=== PATIENT | female | born 1935 | race Caucasian/White ===

== ENCOUNTER 2025-01-16 07:32 | Emergency (ER) | payer MEDICARE, OTHER, SELFPAY ==
[2025-01-16] VITALS (11 sets, daily range): BP systolic 145–185; BP diastolic 70–122; BMI 25.9
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
[2025-01-16] MEDS: MORPHINE SULFATE 4 MG IV (08:29)
[2025-01-16] MEDS: ADACEL 0.5 ML IM (11:06)
[2025-01-16 12:57] LABS: Urine Albumin Negative (Neg - Trace); Urine Bilirubin Negative (Negative); Urine Character Slightly Cloudy (Clear); Urine Color Yellow; Urine Glucose Negative (Negative); Urine Ketone Negative (Negative); Urine Leukocyte Negative (Negative); Urine Nitrite Negative (Negative); Urine Occult Blood Negative (Negative); Urine Urobilinogen Negative (Neg - 1+)
== END 2025-01-16 16:16 ==
LOC: EMR 07:32
PROVIDERS: Nurse Practitioner; EMERGENCY PHYSICIAN Emergency Medicine; FAMILY PHYSICIAN Family Medicine
DX: S42.201A Unspecified fracture of upper end of right humerus, initial encounter for closed fracture (principal); S52.501A Unspecified fracture of the lower end of right radius, initial encounter for closed fracture; S52.601A Unspecified fracture of lower end of right ulna, initial encounter for closed fracture; S01.81XA Laceration without foreign body of other part of head, initial encounter; W19.XXXA Unspecified fall, initial encounter; F03.90 Unspecified dementia, unspecified severity, without behavioral disturbance, psychotic disturbance, mood disturbance, and anxiety; Z23 Encounter for immunization
CPT/HCPCS: 12013; 90471; 96374; 99284; 29125; 70450; 70486; 72125; 73030; 73110; 81003; 90715; 93005

== ENCOUNTER 2025-01-17 14:27 | Observation (INO) | payer MEDICARE, OTHER, SELFPAY ==
[2025-01-17] VITALS (7 sets, daily range): BP systolic 110–166; BP diastolic 59–95; PULSE 69; O2SAT 100; BMI 23.1; BMI 23.0
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
--- NOTE | 2025-01-17 13:27 | CM ---
Addendum entered by Madelin Maddox 01/17/25 13:41:
lives with spouse at the [facility]
Original Note:
Case kobier reviewed patient's chart and met with patient and patient was admitted from the [facility], patient was in the ED yesterday was sent home and is now back again, patient with ambulatory dysfunction, right humeral and radius/ulna
fractures, patient is unable to sit up due to fractures, patient is also assist x 2, rehabilitation caseworker spoke with both of patient's daughters and plan is for skilled placement they have selected [facility] as first choice and [facility] as 2nd choice.
PCP: Dr Cespedes
Pharmacy: [facility] on [address]
Plan; Skilled placement referrals sent to [facility] and [facility]
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
[2025-01-17 15:15] LABS: Hematocrit 32.0 % (37.0-47.0); Hemoglobin 10.8 g/dL (12.0-16.0); Mean Corp Hgb Conc. 33.8 g/dL (33.0-37.0); Mean Corpuscular Volume 93.8 fL (81.0-99.0); Nucleated Red Blood Cells % 0 %; Platelet Count 189 10^3/uL (130-400); Red Cell Dist. Width 12.9 % (11.5-14.5)
[2025-01-17 15:29] LABS: ALT (SGPT) 18 U/L (0-35); AST (SGOT) 26 U/L (14-36); Albumin 3.7 g/dl (3.5-5.0); Alkaline Phosphatase 107 U/L (38-126); Blood Urea Nitrogen 18 mg/dl (7-17); Calcium 8.6 mg/dl (8.4-10.2); Carbon Dioxide 23 mmol/L (22-30); Chloride 109 mmol/L (98-107); Estimated Creatinine Clearance 57 ml/min; Glucose 93 mg/dl (70-99); Potassium 3.7 mmol/L (3.5-5.1); Sodium 138 mmol/L (135-145); Total Protein 6.8 g/dl (6.3-8.2); eGFR > 60.00
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
[2025-01-17] MEDS: SEROQUEL 25 MG PO (20:26)
[2025-01-17] MEDS: HEPARIN 5000 UNITS SC (20:26)
[2025-01-18] MEDS: SYNTHROID 75 MCG PO (05:20)
[2025-01-18 05:21] LABS: Hematocrit 31.5 % (37.0-47.0); Hemoglobin 10.6 g/dL (12.0-16.0); Mean Corp Hgb Conc. 33.7 g/dL (33.0-37.0); Mean Corpuscular Volume 93.8 fL (81.0-99.0); Nucleated Red Blood Cells % 0 %; Platelet Count 194 10^3/uL (130-400); Red Cell Dist. Width 13.0 % (11.5-14.5)
[2025-01-18 05:51] LABS: ALT (SGPT) 16 U/L (0-35); AST (SGOT) 24 U/L (14-36); Albumin 3.7 g/dl (3.5-5.0); Alkaline Phosphatase 107 U/L (38-126); Blood Urea Nitrogen 16 mg/dl (7-17); Calcium 8.3 mg/dl (8.4-10.2); Carbon Dioxide 25 mmol/L (22-30); Chloride 108 mmol/L (98-107); Estimated Creatinine Clearance 60 ml/min; Glucose 88 mg/dl (70-99); Potassium 3.7 mmol/L (3.5-5.1); Sodium 140 mmol/L (135-145); Total Protein 6.7 g/dl (6.3-8.2); eGFR > 60.00
[2025-01-18 07:16] VITALS: BP 143/73
[2025-01-18] MEDS: FEOSOL 325 MG PO (09:18)
[2025-01-18] MEDS: HEPARIN 5000 UNITS SC ×2 (09:19→19:39)
[2025-01-18] MEDS: SEROQUEL 25 MG PO ×2 (09:19→19:39)
--- NOTE | 2025-01-18 09:51 | W.PN.HOSP.TC ---
Addendum entered and electronically signed by Patricia Gu MD 01/18/25 16:06:
Addendum
Updated Patient daughter, Codi [phone]. Answered all questions.
End
Original Note:
Today's Communication/Plan
-
medical case worker for dc planning
Consult ortho for recommendations
Assessment / Plan
Assessment / Plan
Physical Exam
General: No Apparent Distress
HEENT: NormoCephalic, Moist mucous membranes and Atraumatic, mild bruising noted around right eye
Respiratory: Clear
Cardiac: S1/S2 and Regular Rhythm; No Murmur or Rub
GI: Soft, Non Tender, Non Distended and Normal Bowel Sounds; No Organomegaly
Rectal: no bleeding
Musculoskeletal: No Clubbing, No Cyanosis and No Edema
Skin: No Rash
Neuro: awake, forgetful, followed simple commands
Psych: calm, apparent dementia
PLAN:
# Right humeral/distal radial/ulnar fracture
-Sling and splint placed
- PT recommending rehab
- Patient denies pain but she is poor historian
- Case management unable to place today
- Tylenol for pain
- will consult ortho for recommendations
# Right orbital ecchymosis with laceration
-Small soft tissue laceration/hematoma within the right periorbital soft tissue
- CT head and facial bones negative for fracture
Dementia
Hypothyroidism
- Continue levothyroxine
DNR/DNI
DVT prophylaxis�heparin
Regular diet
Total time spent to see the patient, examine the patient, review data and lab result, discuss treatment plan with patient, nursing staff around 55 minutes
Anticipated Discharge: 24 - 48 hours
Subjective/Interval History
-
Date of Service: January 18, 2025
Objective Data
-
Labs:
Laboratory Results
01/18/25
04:14
WBC 6.7
Hgb 10.6 L
Hct 31.5 L
Plt Count 194
Sodium 140
Potassium 3.7
Chloride 108 H
Carbon Dioxide 25
BUN 16
Creatinine 0.6
Glucose 88
Calcium 8.3 L
Total Bilirubin 0.9
AST 24
ALT 16
Alkaline Phosphatase 107
Vital Signs:
Vital Signs
Temp Pulse Resp BP Pulse Ox
98.3 F 80 16 143/73 96
01/18/25 07:16 01/18/25 07:16 01/18/25 07:16 01/18/25 07:16 01/18/25 09:16
I&O
01/17/25 01/18/25 01/19/25
06:59 06:59 06:59
Intake Total 240 / 240
Balance 240 / 240
--- NOTE | 2025-01-18 12:40 | CON.ORTHO ---
Consultation
-
Date/Time Consultation Requested: 0958 01/18/2025
Date/Time Consultation Performed: 1240 01/18/2025
Requesting Provider: Blanca Gu
Performing Provider: Grzegorz Hodges
Reason for Consultation: R arm injury
Consultation - Orthopedics
History
Orthopedic Surgery Note
CC: R Arm Injury
HPI: 89-year-old Female with a History of Dementia Who Lives in Assisted Living Presents to the Emergency Department 2 Days Ago after a Fall. She Was Noted at That Time to Have a Proximal Humerus Fracture As Well As Distal Radius Fracture. She Was
Placed in a Sling and a Wrist Splint and Was Discharged Back to Her Assisted Living Facility. She Returned to the ER Due To Fall Risk and Being Unable to Manage with Her Right Upper Extremity Injury. The Patient Denies Significant Pain. She
Denies Distal Paresthesias.
PMH/PSH: Dementia, Hypothyroid
Medications: Reviewed
Family History: Family History Was Reviewed. Noncontributory
Social History: Nonsmoker, No Illicit Drugs
Exam
General Appearance: No Acute Distress, Sleepily Sitting Upright in a Chair
Head: Laceration above Right Eye with Ecchymosis, Sp Suture Repair
Nose: No Lesions or Discharge.
Skin: Ecchymosis and Edema about R Hand
Lungs: No Audible Wheezing, No Cough or Sputum Production
Musculoskeletal:
RUE:
Skin Intact without Open Wounds
R Sling and R Wrist Splint in Place
Fires R/u/M/Ain/Pin
Sensation Intact to Light Touch R/u/M
Fingers Wwp, 1+ Radial Pulse
Xrays:
Right Shoulder and Wrist Xrays Were Reviewed by Me. These Were Performed 01/16/2025 at [facility] Emergency Department. They Show an Impacted Fracture of the Right Proximal Humerus without Signs of Dislocation. Right Wrist X-Rays Were
Reviewed by Me Which Show Signs ofWhat Appears to Be an Extra-Articular Distal Radius Fracture As Well As a Fracture of the Ulnar Styloid.There Is Some Mild Shortening.
AP
89-year-old Female with a History of Dementia with a Right Impacted Extra-Articular Proximal Humerus Fracture As Well As a Right Extra-Articular Distal Radius Fracture. The Patient Is Neurologically Intact Distally. No Signs of Open Wounds Other
Than Her Right Periorbital Laceration. I RecommendedContinued Immobilization in the Right Wrist Splint and Right Shoulder Sling. She May Follow up with Dr. Brown or Dr. Bruce upon Discharge within 1-2 Weeks to Discuss Operative Vs Nonoperative
Management. Pain Control PRN. Edema Control with Ice and Elevation.
Grzegorz Hodges MD
> 75 Minutes Was Spent Reviewing the Clinical Information, Evaluating the Patient, and Formulating Clinical Plan.
Allergies / Home Medications
Allergy/AdvReac Type Severity Reaction Status Date / Time
No Known Drug Allergies Allergy NONE Verified 02/15/23 10:45
NKA - No Known Allergies Allergy Unknown Uncoded 02/15/23 10:45
�Medication �Instructions �Recorded
levothyroxine 75 mcg tablet 75 mcg PO DAILY@0600 Thyroid 02/15/23
ferrous sulfate 324 mg (65 mg 324 mg PO DAILY Supplement 01/17/25
iron) tablet,delayed release
lorazepam 0.5 mg tablet 0.5 mg PO BIDPRN PRN ANXIETY 01/17/25
quetiapine 25 mg tablet (Seroquel) 25 mg PO BID Mental Health/Anxiety 01/17/25
Vital Signs / Lab Results
Temp Pulse Resp BP Pulse Ox
98.3 F 80 16 143/73 96
01/18/25 07:16 01/18/25 07:16 01/18/25 07:16 01/18/25 07:16 01/18/25 09:16
01/18/25 04:14
01/18/25 04:14
[2025-01-18 14:55] VITALS: BP 125/75; O2SAT 96
[2025-01-18 15:03] VITALS: BP 125/75; O2SAT 96
[2025-01-18 15:27] VITALS: BP 121/66
--- NOTE | 2025-01-18 15:37 | PTCARENOTE ---
Pt awake and alert; oriented to self/place/birthdate; knows years, confused to month/day at times. Pt unsure as to why she is in the hospital. Forgetful at times. Pt BOURNE; has RUE forearm splint/RO wrap/sling. OOB to chair with assist x2; pt
very hesitant to assist with ambulation/moves legs minimally.VSS. Pt has +1 edema Rt hand; skin ecchymotic; sensation/movement (+) to right fingers; no c/o discomfort.. On room air- pulse ox 97%, no SOB noted. Abd obese, soft, katrin PO. Incont
large amts urine.Resting in bed at present. Will continue to monitor.
[2025-01-18] MEDS: ATIVAN PO (23:34)
[2025-01-18 23:35] VITALS: BP 130/73
[2025-01-19] MEDS: ZYPREXA 10 MG IM (00:28)
[2025-01-19] MEDS: SYNTHROID 75 MCG PO (05:30)
[2025-01-19 07:47] VITALS: BP 177/87
[2025-01-19 08:14] LABS: Hematocrit 34.2 % (37.0-47.0); Hemoglobin 11.2 g/dL (12.0-16.0); Mean Corp Hgb Conc. 32.7 g/dL (33.0-37.0); Mean Corpuscular Volume 95.3 fL (81.0-99.0); Platelet Count 213 10^3/uL (130-400); Red Cell Dist. Width 12.9 % (11.5-14.5)
[2025-01-19 08:44] LABS: Blood Urea Nitrogen 11 mg/dl (7-17); Calcium 8.8 mg/dl (8.4-10.2); Carbon Dioxide 27 mmol/L (22-30); Chloride 109 mmol/L (98-107); Estimated Creatinine Clearance 60 ml/min; Glucose 97 mg/dl (70-99); Potassium 3.6 mmol/L (3.5-5.1); Sodium 142 mmol/L (135-145); eGFR > 60.00
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
[2025-01-19] MEDS: HEPARIN 5000 UNITS SC ×2 (10:39→20:21)
[2025-01-19] MEDS: FEOSOL 325 MG PO (10:39)
[2025-01-19] MEDS: SEROQUEL 25 MG PO ×2 (10:39→20:18)
[2025-01-19 11:00] VITALS: BP 139/73
--- NOTE | 2025-01-19 12:11 | CM ---
Addendum entered by Lorie Navarrete 01/19/25 14:19:
Financial Applications for [facility] sent via email to pt's daughter, Codi Chan: [email or web address]
Addendum entered by Lorie Navarrete 01/19/25 13:19:
Pt recently changed her PCP, and is not eligible for the [employer] Waiver. CM called Dr. Cespedes's office to make them aware and will cancel the telehealth appointment that was scheduled earlier today.
CM called pt's daughters to discuss options: Private pay SNF vs. return to the [facility] with PT/OT and possibly additional private pay assistance.
Addendum entered by Lorie Navarrete 01/19/25 12:13:
[facility] does not participate in the [employer] Waiver program. Will need to follow up with [facility].
Original Note:
CM confirmed that Fina is eligible for the [employer] Waiver with the [facility]. Call placed to PCP office and spoke with Hannah to coordinate telehealth appointment. First available appointment is today at 5:45 PM with . Hannah will
coordinate the telehealth appointment with pt's daughter, Codi, who can be reached at [phone].
--- NOTE | 2025-01-19 13:41 | W.PN.HOSP.TC ---
Today's Communication/Plan
-
Assessment / Plan
Assessment / Plan
Physical Exam
General: No Apparent Distress
HEENT: NormoCephalic, Moist mucous membranes, mild bruising noted around right eye
Respiratory: Clear
Cardiac: S1/S2 and Regular Rhythm; No Murmur or Rub
GI: Soft, Non Tender, Non Distended and Normal Bowel Sounds; No Organomegaly
Rectal: no bleeding
Musculoskeletal: No Clubbing, No Cyanosis and No Edema, right upper extremity in sling
Skin: No Rash
Neuro: awake, forgetful, followed simple commands
Psych: calm, apparent dementia
PLAN:
# Right humeral/distal radial/ulnar fracture
- Sling for right shoulder fracture and splint for right wrist fracture
- Ortho following, no surgical intervention planned, remain nonweightbearing right upper extremity, outpatient follow-up 1 to 2 weeks
- PT/OT recommending SNF, placement pending and likely for tomorrow 01/20
- Tylenol for pain
# Right orbital ecchymosis with laceration
- Small soft tissue laceration/hematoma within the right periorbital soft tissue
- CT head and facial bones negative for fracture
- Continue fall precautions, local wound care as needed
Dementia
- Requires assistance with ADLs
- Continue home Seroquel
- Medically stable for SNF placement
Hypothyroidism
- Continue levothyroxine
DNR/DNI
DVT prophylaxis�heparin
Regular diet
Total time spent to see the patient, examine the patient, review data and lab result, discuss treatment plan with patient, nursing staff around 40 minutes
Anticipated Discharge: Within 24 hours
Subjective/Interval History
-
Date of Service: January 19, 2025
Patient was seen and examined at bedside this morning. Remains confused but clinically stable. Awaiting SNF placement.
Objective Data
-
Labs:
Laboratory Results
01/19/25
07:54
WBC 6.6
Hgb 11.2 L
Hct 34.2 L
Plt Count 213
Sodium 142
Potassium 3.6
Chloride 109 H
Carbon Dioxide 27
BUN 11
Creatinine 0.6
Glucose 97
Calcium 8.8
Vital Signs:
Vital Signs
Temp Pulse Resp BP Pulse Ox
97.6 F 84 18 139/73 95
01/19/25 07:47 01/19/25 11:00 01/19/25 07:47 01/19/25 11:00 01/19/25 07:47
I&O
01/18/25 01/19/25 01/20/25
06:59 06:59 06:59
Intake Total 240 / 240 810 / 810 240 / 240
Balance 240 / 240 810 / 810 240 / 240
Review of Systems
-
Unable to obtain full review of systems at this time due to: Dementia
Physical Exam
-
General: No Apparent Distress
[2025-01-19 14:39] VITALS: BP 153/83; PULSE 86; O2SAT 97
[2025-01-19 15:21] VITALS: BP 167/88
[2025-01-19] MEDS: ATIVAN 0.5 MG PO (20:18)
[2025-01-19 23:15] VITALS: BP 133/74
[2025-01-20] MEDS: SYNTHROID 75 MCG PO (06:11)
[2025-01-20 07:00] VITALS: BP 141/74
[2025-01-20] MEDS: FEOSOL 325 MG PO (08:19)
[2025-01-20] MEDS: HEPARIN 5000 UNITS SC ×2 (08:19→20:31)
[2025-01-20] MEDS: SEROQUEL 25 MG PO ×2 (08:19→20:31)
[2025-01-20 10:21] VITALS: BP 119/66; PULSE 82; O2SAT 95
[2025-01-20 10:22] VITALS: BP 119/66; PULSE 82; O2SAT 96
--- NOTE | 2025-01-20 11:35 | W.DCSUMMARY ---
Discharge Summary
Discharge Data
Date of Admission: 01/17/25
Date of Discharge: 01/20/25
Total time spent discharging patient (in min): 40
-
Pending Results: No
Hospital Course
Ms. Chan is an 89-year-old female with a medical history of dementia and hypothyroidism who presented after an unwitnessed fall. She was found to have fractured her right humerus, right radius, and right ulna. She was evaluated by orthopedic
surgery and surgical intervention was not warranted. Her right upper extremity was stabilized with a splint and sling. She is to remain nonweightbearing to her right upper extremity until she is able to follow-up in the outpatient orthopedic
office in 1 to 2 weeks. She also suffered a small laceration near her right eyebrow during her fall and required placement of 5 simple interrupted sutures. She has some surrounding periorbital ecchymosis which is improving. She will need ongoing
rehab at a correction facility which has been arranged. At time of hospital discharge she was medically stable. She will need follow-up with orthopedics and with her primary care physician.
General: No Apparent Distress
HEENT: NormoCephalic, Moist mucous membranes, mild bruising noted around right eye
Respiratory: Clear
Cardiac: S1/S2 and Regular Rhythm; No Murmur or Rub
GI: Soft, Non Tender, Non Distended and Normal Bowel Sounds; No Organomegaly
Rectal: no bleeding
Musculoskeletal: No Clubbing, No Cyanosis and No Edema, right upper extremity in sling
Skin: No Rash
Neuro: awake, forgetful, followed simple commands
Psych: calm, apparent dementia
Discharge Plan
-
Patient Disposition: [facility]-Way/SNF
Discharge Diagnosis/Procedures: Right humeral, right distal radial, right ulnar fractures
Diet: Regular
Activity: Other activity
Additional Activity: Nonweightbearing to right upper extremity, ambulate with assistance
Activity Restrictions/Additional Instructions:
Ms. Chan is an 89-year-old female with a medical history of dementia and hypothyroidism who presented after an unwitnessed fall. She was found to have fractured her right humerus, right radius, and right ulna. She was evaluated by orthopedic
surgery and surgical intervention was not warranted. Her right upper extremity was stabilized with a splint and sling. She is to remain nonweightbearing to her right upper extremity until she is able to follow-up in the outpatient orthopedic
office in 1 to 2 weeks. She also suffered a small laceration near her right eyebrow during her fall and required placement of 5 simple interrupted sutures. She has some surrounding periorbital ecchymosis which is improving. She will need ongoing
rehab at a correction facility which has been arranged. At time of hospital discharge she was medically stable. She will need follow-up with orthopedics and with her primary care physician.
Referrals:
Erasmo Cespedes MD [Family Provider, [facility]]
Prescriptions:
Continued
levothyroxine 75 mcg tablet
75 mcg PO DAILY@0600
quetiapine [Seroquel] 25 mg Tablet
25 mg PO BID
lorazepam 0.5 mg Tablet
0.5 mg PO BIDPRN PRN (Reason: ANXIETY)
ferrous sulfate 324 mg (65 mg iron) Tablet,Delayed Release (Dr/Ec)
324 mg PO DAILY
Discharge Orders:
Discharge Patient (As Directed); Ordered 01/20/25
Ordered By: Krunal Hoover
Discharge Date and Time
Print Language: TUVALUAN
--- NOTE | 2025-01-20 12:29 | CM ---
Addendum entered by LU Higuera 01/21/25 10:06:
Late entry note 01/20/2025
Patient's application to [facility] was faxed to [phone]. F/U call with Tess in admissions who stated that she will review application and then render determination about acceptance.
Application was faxed to [facility]. [phone]. Received call back from Remedios in admissions who stated that patient does not have the financial ability to afford their private pay rate and therefore has to decline any consideration of acceptance.
Will update patient's daughter.
Addendum entered by LU Higuera 01/20/25 15:53:
Patient discharge cancelled per attending and RN.
Original Note:
Spoke with attending who stated that patient is medically cleared for discharge. Spoke with patient's daughter this morning, Codi, who was upset about the fact that Medicare will not cover a stay to a SNF as she would be unable to go to the
[facility]. Patient has been under OBS status since she was in the ER. Explanation provided to patient's daughter, that as Medicare will not cover the SNF stay, and the [facility] is unable to support her needs at this time, she would either need to
privately pay for SNF or family would have to hire private caregivers. Patient's daughter stated that she has completed financial applications to both [facility] and to [facility]. Spoke with Remedios at [facility], what family would
prefer in regard to placement, and she stated that as soon as she reviews financial application, she will return call to provide determination about bed availability. [facility] will also need to review financial application prior to acceptance.
Spoke with Lorri, Sales Order Administrator at the [facility] who requested update as to patient's status.
Attending updated. Discharge order in.
supervisor dried yeast and director also updated as to status of patient's transfer to a SNF.
Plan: Case management will continue to follow and assist with discharge planning. SNF private pay upon bed offer at requested facilities.
[2025-01-20 15:00] VITALS: BP 125/65
--- NOTE | 2025-01-20 16:18 | PTCARENOTE ---
Pt currently sleeping but easily arousable; remains awake for brief periods; keeps eyes closed. Oriented to self/birthdate only. BOURNE randomly/slowly. Rt forearms splint/RO wrap/arm sling intact. VSS. On room air- pulse ox 100%, no SOB noted.
Abd obese, soft, taking only small amts PO with much encouragement. Incont large amts urine. Will continue to monitor.
[2025-01-20] MEDS: TYLENOL 650 MG PO (20:46)
[2025-01-20 23:30] VITALS: BP 94/59
[2025-01-21] MEDS: SYNTHROID 75 MCG PO (05:54)
[2025-01-21 06:52] VITALS: BP 139/69
--- NOTE | 2025-01-21 10:12 | CM ---
Addendum entered by LU Higuera 01/21/25 16:50:
Received return call back from Codi. Offer was made to conference call Medicare with patient's daughter so that the information is received at the same time. Spoke with a videotape sales representative named, Carlo Curtis who stated that patient would need a 3
night qualifying stay for SNF. Patient's daughter stated that patient does not need SNF, she needs rehab and would not allow CM to advise the differences.
Codi stated that she wants [facility] or [facility] for patient. She stated that they are not skilled facilities. Placed a call to Remedios in admissions at [facility] who advised patient's daughter they are a skilled facility and so is [facility] and
other facilities that she is exploring and would run into the same issue.
Patient's daughter wanted to talk to attending to discuss obs status. TT attending. Spoke with director to update that patient's daughter very upset about Observation status and CM spent afternoon trying to educate her on distinctions in levels
of care and criteria for inpatient by speaking with Medicare rep and ME supervisors.
Received call from [facility].
Received call from [facility]. Both facilities are denying admission (private pay) or otherwise. 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 Will get more options of SNFs from patient's daughter to send more referrals.
Original Note:
Received message from RAEANN Kincaid radiology administrator, who stated that patient's daughter, left a message on voice mail which stated, that she would like a return call, as she had spoken to someone from Medicare who told her that there is no 3 day
stay requirement for [facility]. Placed a return call to patient's daughter. She answered however there was interference on the line and she was not coming across clear. Patient's daughter asked if she could call back. Verification was
obtained that she has the # to the CM dept.
Plan: Case management will continue to follow and assist with discharge planning. Hopeful transfer to SNF private pay at [facility]. Awaiting determination from [facility] regarding acceptance.
[2025-01-21] MEDS: FEOSOL 325 MG PO (10:27)
[2025-01-21] MEDS: SEROQUEL 25 MG PO ×2 (10:27→20:05)
[2025-01-21] MEDS: HEPARIN 5000 UNITS SC ×2 (10:27→20:05)
--- NOTE | 2025-01-21 13:27 | W.PN.HOSP.TC ---
Today's Communication/Plan
-
Assessment / Plan
Assessment / Plan
Physical Exam
General: No Apparent Distress
HEENT: right periorbital ecchymosis, small right supraorbital laceration with 5 simple [address] in place
Respiratory: Clear
Cardiac: S1/S2 and Regular Rhythm; No Murmur or Rub
GI: Soft, Non Tender, Non Distended and Normal Bowel Sounds; No Organomegaly
Rectal: no bleeding
Musculoskeletal: No Clubbing, No Cyanosis and No Edema, right upper extremity in sling
Skin: No Rash
Neuro: awake, forgetful, followed simple commands
Psych: calm, apparent dementia
PLAN:
# Right humeral/distal radial/ulnar fracture
- Sling for right shoulder fracture and splint for right wrist fracture
- Ortho following, no surgical intervention planned, remain nonweightbearing right upper extremity, outpatient follow-up 1 to 2 weeks
- PT/OT recommending SNF, placement pending, medically stable for discharge
- Tylenol for pain
# Right orbital ecchymosis with laceration
- Small soft tissue laceration/hematoma within the right periorbital soft tissue
- CT head and facial bones negative for fracture
- Continue fall precautions, local wound care as needed
Dementia
- Requires assistance with ADLs
- Continue home Seroquel
- Medically stable for SNF placement
Hypothyroidism
- Continue levothyroxine
DNR/DNI
DVT prophylaxis�heparin
Regular diet
Total time spent to see the patient, examine the patient, review data and lab result, discuss treatment plan with patient, nursing staff around 40 minutes
Anticipated Discharge: 24 - 48 hours
Subjective/Interval History
-
Date of Service: January 21, 2025
Patient was seen and examined at bedside this morning. Resting comfortably. Awaiting SNF placement.
Objective Data
-
Vital Signs:
Vital Signs
Temp Pulse Resp BP Pulse Ox
97.3 F 62 18 139/69 99
01/21/25 06:52 01/21/25 06:52 01/21/25 06:52 01/21/25 06:52 01/21/25 06:52
I&O
01/20/25 01/21/25 01/22/25
06:59 06:59 06:59
Intake Total 600 / 600 480 / 480
Balance 600 / 600 480 / 480
Review of Systems
-
History Source: Patient
All other systems: Reviewed and negative
Musculoskeletal: Reports Joint Pain (Right arm pain)
Physical Exam
-
General: No Apparent Distress
[2025-01-21 15:05] VITALS: BP 108/65
[2025-01-21] MEDS: TYLENOL 650 MG PO (20:08)
[2025-01-21 23:36] VITALS: BP 101/54
[2025-01-22] MEDS: SYNTHROID 75 MCG PO (06:01)
[2025-01-22 07:59] VITALS: BP 140/73
[2025-01-22] MEDS: FEOSOL 325 MG PO (09:43)
[2025-01-22] MEDS: SEROQUEL 25 MG PO (09:44)
[2025-01-22] MEDS: HEPARIN 5000 UNITS SC (09:44)
--- NOTE | 2025-01-22 12:06 | CM ---
Addendum entered by LU Higuera 01/22/25 14:52:
[facility] will accept patient today. # For report [phone] fax# [phone]
Will complete medical necessity and transfer sheet.
IMM reviewed with patient's daughter.
Attending updated that bed is available and that they can accept today.
Original Note:
Spoke with patient's daughter who stated that she spoke with attending yesterday and he advised that patient is observation. She stated that she plans on challenging that with patient's Medicare, but understands that as patient is medically stable,
will need to transfer to a SNF as soon as bed is available. Patient's daughter stated that she would like referrals to be sent to, [facility], [facility], [facility] and [facility]. (The [facility] facilities). Patient's
daughter stated that her first choice would be [facility]. She stated that she, the daughter, would not have to go through an application process but would need to pay for one half month ahead of time, $350 per day, rehab is covered under
part B. 4,900 for 14 days.
Referral sent to [facility] in admissions at all facilities above.
She stated that she will review and return call to with determination.
Plan: Case management will continue to follow and assist with discharge planning. SNF-today/will update attending.
[2025-01-22 12:14] VITALS: BP 119/97; BP 97/56; PULSE 77; O2SAT 95
--- NOTE | 2025-01-22 12:53 | W.PN.HOSP.TC ---
Today's Communication/Plan
-
Assessment / Plan
Assessment / Plan
Physical Exam
General: No Apparent Distress
HEENT: right periorbital ecchymosis, small right supraorbital laceration with 5 simple interrupted sutures in place
Respiratory: Clear
Cardiac: S1/S2 and Regular Rhythm; No Murmur or Rub
GI: Soft, Non Tender, Non Distended and Normal Bowel Sounds; No Organomegaly
Rectal: no bleeding
Musculoskeletal: No Clubbing, No Cyanosis and No Edema, right upper extremity in sling
Skin: No Rash
Neuro: awake, forgetful, followed simple commands
Psych: calm, apparent dementia
PLAN:
# Right humeral/distal radial/ulnar fracture
- Sling for right shoulder fracture and splint for right wrist fracture
- Ortho following, no surgical intervention planned, remain nonweightbearing right upper extremity, outpatient follow-up 1 to 2 weeks
- PT/OT recommending SNF, placement pending, medically stable for discharge
- Tylenol for pain
# Right orbital ecchymosis with laceration
- Small soft tissue laceration/hematoma within the right periorbital soft tissue
- CT head and facial bones negative for fracture
- Continue fall precautions, local wound care as needed
- All 5 sutures removed today 01/22
Dementia
- Requires assistance with ADLs
- Continue home Seroquel
- Medically stable for SNF placement
Hypothyroidism
- Continue levothyroxine
DNR/DNI
DVT prophylaxis�heparin
Regular diet
Total time spent to see the patient, examine the patient, review data and lab result, discuss treatment plan with patient, nursing staff around 40 minutes
Anticipated Discharge: 24 - 48 hours
Subjective/Interval History
-
Date of Service: January 22, 2025
Patient was seen and examined sitting in chair at bedside this morning. Feeling generally well, no complaints. Awaiting SNF placement.
Objective Data
-
Vital Signs:
Vital Signs
Temp Pulse Resp BP Pulse Ox
97.4 F 68 18 140/73 99
01/22/25 07:59 01/22/25 07:59 01/22/25 07:59 01/22/25 07:59 01/22/25 07:59
I&O
01/21/25 01/22/25 01/23/25
06:59 06:59 06:59
Intake Total 480 / 480 660 / 660 320 / 320
Balance 480 / 480 660 / 660 320 / 320
Review of Systems
-
History Source: Patient
All other systems: Reviewed and negative
Physical Exam
-
General: No Apparent Distress
[2025-01-22 12:57] VITALS: BP 97/56; PULSE 78; O2SAT 94
--- NOTE | 2025-01-22 13:25 | W.PN.UPDATE ---
Update Note
Progress Note Update
All 5 sutures removed from right supraorbital laceration. Epidermis remains approximated. Area appears to be healing appropriately.
--- NOTE | 2025-01-22 14:57 | CM ---
Addendum entered by LU Higuera 01/22/25 15:17:
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 Daughter updated.
Original Note:
Received return call from Codi. Advised her that both [facility] and [facility] are not able to accommodate patient. As this is the case and patient's daughter wants to keep patient in the area, she chose the [facility] SNFs. [facility],
[facility], [facility] and [facility].
Placed a call to Madelin in admissions at all facilities. She stated that patient could have a bed at [facility] R [phone] fax# [phone].
Patient will be billed 350 dollars a day and need to pay for 14 days up front-[id number].
Placed a call back to patient's daughter who is agreeable to these terms.
Attending updated.
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
Plan: Case management will continue to follow and assist with discharge planning. [facility] today.
--- NOTE | 2025-01-22 15:00 | W.DCSUMMARY ---
Discharge Summary
Discharge Data
Date of Admission: 01/17/25
Date of Discharge: 01/22/25
Total time spent discharging patient (in min): 40
-
Pending Results: No
Hospital Course
Ms. Chan is an 89-year-old female with a medical history of dementia and hypothyroidism who presented after an unwitnessed fall. She was found to have fractured her right humerus, right radius, and right ulna. She was evaluated by orthopedic
surgery and surgical intervention was not warranted. Her right upper extremity was stabilized with a splint and sling. She is to remain nonweightbearing to her right upper extremity until she is able to follow-up in the outpatient orthopedic
office in 1 to 2 weeks. She also suffered a small laceration near her right eyebrow during her fall and required placement of 5 simple interrupted sutures. She has some surrounding periorbital ecchymosis which is improving. She will need ongoing
rehab at a fci facility which has been arranged. Her sutures were all removed at bedside 7 days after they were placed and her skin appears to be well-approximated. At time of hospital discharge she was medically stable. She will need
follow-up with orthopedics and with her primary care physician.
General: No Apparent Distress
HEENT: right periorbital ecchymosis, small well-healing right supraorbital laceration with sutures removed
Respiratory: Clear
Cardiac: S1/S2 and Regular Rhythm; No Murmur or Rub
GI: Soft, Non Tender, Non Distended and Normal Bowel Sounds; No Organomegaly
Rectal: no bleeding
Musculoskeletal: No Clubbing, No Cyanosis and No Edema, right upper extremity in sling
Skin: No Rash
Neuro: awake, forgetful, followed simple commands
Psych: calm, apparent dementia
Discharge Plan
-
Patient Disposition: Custodial/SNF
Discharge Diagnosis/Procedures: Right humeral, right distal radial, right ulnar fractures
Diet: Regular
Activity: Other activity
Additional Activity: Nonweightbearing to right upper extremity, ambulate with assistance
Activity Restrictions/Additional Instructions:
Ms. Chan is an 89-year-old female with a medical history of dementia and hypothyroidism who presented after an unwitnessed fall. She was found to have fractured her right humerus, right radius, and right ulna. She was evaluated by orthopedic
surgery and surgical intervention was not warranted. Her right upper extremity was stabilized with a splint and sling. She is to remain nonweightbearing to her right upper extremity until she is able to follow-up in the outpatient orthopedic
office in 1 to 2 weeks. She also suffered a small laceration near her right eyebrow during her fall and required placement of 5 simple interrupted sutures. She has some surrounding periorbital ecchymosis which is improving. She will need ongoing
rehab at a [facility] facility which has been arranged. Her sutures were all removed at bedside 7 days after they were placed and her skin appears to be well-approximated. At time of hospital discharge she was medically stable. She will need
follow-up with orthopedics and with her primary care physician.
Referrals:
Erasmo Cespedes MD [Family Provider, [facility]]
Prescriptions:
Continued
levothyroxine 75 mcg tablet
75 mcg PO DAILY@0600
quetiapine [Seroquel] 25 mg Tablet
25 mg PO BID
lorazepam 0.5 mg Tablet
0.5 mg PO BIDPRN PRN (Reason: ANXIETY)
ferrous sulfate 324 mg (65 mg iron) Tablet,Delayed Release (Dr/Ec)
324 mg PO DAILY
Discharge Orders:
Discharge Patient (As Directed); Ordered 01/22/25
Ordered By: Krunal Hoover
Discharge Date and Time
Print Language: URDU
[2025-01-22 15:32] VITALS: BP 112/63
== END 2025-01-22 17:21 ==
LOC: 4 EAST ACU 14:27
PROVIDERS: Internal Medicine; Physician Assistant; ADMITTING PHYSICIAN Hospitalist; ATTENDING PHYSICIAN Internal Medicine; CONSULT PHYSICIAN Orthopaedic Surgery; EMERGENCY PHYSICIAN Emergency Medicine; FAMILY PHYSICIAN Family Medicine
DX: S42.291A Other displaced fracture of upper end of right humerus, initial encounter for closed fracture (principal); S52.551A Other extraarticular fracture of lower end of right radius, initial encounter for closed fracture; S01.111A Laceration without foreign body of right eyelid and periocular area, initial encounter; F03.90 Unspecified dementia, unspecified severity, without behavioral disturbance, psychotic disturbance, mood disturbance, and anxiety; E03.9 Hypothyroidism, unspecified; W18.39XA Other fall on same level, initial encounter; Z66 Do not resuscitate; Z75.1 Person awaiting admission to adequate facility elsewhere; Z79.899 Other long term (current) drug therapy
CPT/HCPCS: 80048; 80053; 85025; 85027; 87070; 97167; 97530; 97535; 99284; G0378; J2358

== ENCOUNTER 2025-03-08 17:34 | Emergency (ER) | payer MEDICARE, OTHER, SELFPAY ==
[2025-03-08 17:41] VITALS: BP 153/128
[2025-03-08 17:55] LABS: Hematocrit 34.6 % (37.0-47.0); Hemoglobin 11.2 g/dL (12.0-16.0); Mean Corp Hgb Conc. 32.4 g/dL (33.0-37.0); Mean Corpuscular Volume 94.3 fL (81.0-99.0); Nucleated Red Blood Cells % 0 %; Platelet Count 302 10^3/uL (130-400); Red Cell Dist. Width 12.9 % (11.5-14.5); Urine Character Clear (Clear)
[2025-03-08 17:57] VITALS: BP 117/62; BMI 22.1
[2025-03-08 18:00] VITALS: BP 117/62
[2025-03-08 18:10] LABS: Urine Squamous Cell >30 /LPF (Few)
[2025-03-08 18:12] LABS: Urine Red Blood Cell 0-2 /HPF (0-2)
[2025-03-08 18:17] LABS: ALT (SGPT) 12 U/L (0-35); AST (SGOT) 19 U/L (14-36); Albumin 4.0 g/dl (3.5-5.0); Alkaline Phosphatase 158 U/L (38-126); Blood Urea Nitrogen 27 mg/dl (7-17); Calcium 9.1 mg/dl (8.4-10.2); Carbon Dioxide 25 mmol/L (22-30); Chloride 107 mmol/L (98-107); Estimated Creatinine Clearance 60 ml/min; Glucose 102 mg/dl (70-99); Lipase 54 U/L (23-300); Magnesium 2.2 mg/dl (1.6-2.3); Potassium 4.2 mmol/L (3.5-5.1); Sodium 139 mmol/L (135-145); Total Protein 7.4 g/dl (6.3-8.2); eGFR > 60.00
[2025-03-08 19:00] VITALS: BP 129/69
--- NOTE | 2025-03-08 19:30 | ED.GENMED ---
History of Present Illness
General
Chief Complaint: Abdominal Pain
Source: patient and family
Time Seen by Provider: 03/08/25 19:18
History of Present Illness
History of Present Illness:
89-year-old female presents to the emergency room from [facility] for evaluation of abdominal pain. Patient has been having intermittent left lower quadrant abdominal pain over the past couple days. Currently the patient does not have the
pain and does not recall any details of the pain. She does have cognitive impairment. Family states that there was a for the patient's 3 days ago. They gave her Imodium prior to the service to prevent any 'accidents'. They are
not sure if she has had a bowel movement since then. No vomiting. No other complaints at this time.
Past History
Social History
Tobacco: Non-smoker
Phy Exam
Physical Exam
Physical Exam:
General: Awake, Alert, Oriented X1. No acute distress.
Vitals: unremarkable
Head: Atraumatic
Eyes: Pupils equal, EOMI
Throat: Airway intact, no exudates
Neck: Trachea midline
Lungs: Clear and equal b/l
Heart: Regular rate, no murmurs
Abd: Soft, Nontender, No pulsatile mass
Rectal: Empty rectal vault
Neuro: Nonfocal
Skin: Warm, dry, no rash
Extremities: pulses equal b/l, no edema
Course
Orders/Labs/Results
Orders:
Orders
03/08/25 17:48
Complete Blood Count/With Diff Urgent
Comprehensive Metabolic Panel Urgent
Lipase Urgent
Magnesium Urgent
Urinalysis Reflex To Culture Urgent
Date Specimen was Collected: 03/08/25
Time Specimen was Collected: 17:47
Urine Microscopic Reflex Cult Urgent
Urine Culture Urgent
ELADAI Source: U
Specimen Description:
Date Specimen was Collected: 03/08/25
Time Specimen was Collected: 17:47
03/08/25 19:29
CT Abd/Pel (IV only)-DH only Urgent
Comment:
Reason For Exam: llq pain
Abnormal Lab Results
03/08/25
17:48
RBC 3.67 L 10^6/uL
(4.20-5.40)
Hgb 11.2 L g/dL
(12.0-16.0)
Hct 34.6 L %
(37.0-47.0)
MCHC 32.4 L g/dL
(33.0-37.0)
BUN 27 H mg/dl
(7-17)
Glucose 102 H mg/dl
(70-99)
Alkaline Phosphatase 158 H U/L
(38-126)
Leukocyte Esterase Rfl 2+ A
(Negative)
Urine Bacteria (Reflex) Moderate A
(Negative)
03/08/25 17:48
03/08/25 17:48
Vital Signs
Initial and Last Documented VS:
Initial Vital Signs
BP
153/128
03/08/25 17:41
Last Documented Vital Signs
Temp Pulse Resp BP Pulse Ox
98.3 F 74 16 129/69 98
03/08/25 17:57 03/08/25 19:30 03/08/25 19:30 03/08/25 19:00 03/08/25 19:31
MDM/Problems Addressed
Differential Diagnosis Includes:
Constipation, diverticulitis, UTI
MDM/Problems Addressed:
Patient presents with intermittent abdominal discomfort. Her abdominal exam is completely benign at the time my evaluation. Labs are reassuring. CT was obtained given her age and cognitive limitations. CT shows constipation but no other acute
inflammatory process. Will discharge on MiraLAX.
*Radiology
Radiology exam reviewed: radiology read reviewed
*Pulse Oximetry
SaO2: 98
Oxygen Mode of Delivery: Room air
Patient hypoxic: no
*Critical Care Note
Total Time (30-74mins, 75-104mins- exclusive of procedures): Not Applicable
ED Attending Note
-
Portions of this chart may have been created with voice recognition software.� Occasional wrong word or��sound alike� substitutions may have occurred due to the inherent limitations of voice recognition software.
Discharge Plan
Departure
Patient Disposition: Senior Living/SNF
Date of Disposition: 03/08/25
Time of Disposition: 21:20
Condition: Good
Discharge Problem:
Abdominal pain, Constipation
Instructions: Constipation, Adult (DC), Abdominal Pain
Prescriptions:
No Action
levothyroxine 75 mcg tablet
75 mcg PO DAILY@0600
quetiapine [Seroquel] 25 mg Tablet
25 mg PO BID
ferrous sulfate 324 mg (65 mg iron) Tablet,Delayed Release (Dr/Ec)
324 mg PO DAILY
acetaminophen 325 mg Tablet
650 mg PO Q6H PRN (Reason: mild pain/elevated temp)
Referrals:
Lorna Shetty DC [Family Provider]
Activity Restrictions/Additional Instructions:
Fina should take a capful of miralax a day for the next several days to treat constipation
Interventions
Interventions:
*Risk Screen - Suicide Last Done: 03/08/25 17:57
*General Assessment Last Done: 03/08/25 17:57
*Neglect/Abuse Screening Last Done: 03/08/25 17:57
*ED- Fall Risk Assessment Last Done: 03/08/25 17:57
*ED COVID-19 Vaccine History Last Done: 03/08/25 17:57
AN-[place]-[facility]ul[facility] Assessment Last Done: 03/08/25 17:57
Discharge Date and Time
Print Language: AMHARIC
== END 2025-03-09 01:22 ==
LOC: EMR 17:34
PROVIDERS: EMERGENCY PHYSICIAN Emergency Medicine; FAMILY PHYSICIAN Chiropractor
DX: K59.00 Constipation, unspecified (principal); R10.32 Left lower quadrant pain; R41.89 Other symptoms and signs involving cognitive functions and awareness
CPT/HCPCS: 99284; 74177; 80053; 81003; 81015; 83690; 83735; 85025; 87086; Q9967